=== PATIENT | male | born 1960 | race Caucasian/White ===

== ENCOUNTER 2018-12-10 12:03 | Day surgery (SDC) | payer BC, SELFPAY ==
--- NOTE | 2018-12-09 18:33 | PCM.HP.BLA ---
History and Physical Date of Admission: 12/10/18 HISTORY AND PHYSICAL ? Damaso Mccarthy 1960 ? REFERRING PHYSICIAN: Jamey Mann MD ? CHIEF COMPLAINT: Consult ? HPI: The patient is a 57 year old male referred for endoscopy. Patient notes frustration that he had to come in for this office visit prior to his procedure. Damaso notes a family history of colon polyps and occasional bright red rectal bleeding with a bowel movement. He previously had a colonoscopy by Dr. Negro which was performed under [facility] at [facility] on 09/17/13. This was normal, with 5-year follow-up recommended by Dr. Negro due to the family history of polyps. Patient denies any change in bowel habits, weight changes, black tarry stools or abdominal pain. The patient notes no upper GI complaints currently. ? Patient's past medical history is significant for hypertension, hyperlipidemia, obstructive sleep apnea, COPD. He is a former smoker, notes quit 2 years ago. He has a past history of cocaine use, in remission, notes has not used in 8 years. Patient follows with Dr. Mann for his chronic medical conditions. He denies any chest pain, shortness of breath or recent hospitalizations. Denies problems with sedation in the past. ? ? ? PAST?MEDICAL?HISTORY ? Cocaine addiction ([facility]) 07/24/2013 ? in recovery x3 ? COPD (chronic obstructive pulmonary disease) ([facility]) 07/24/2013 ? Dr. Serrano ? Depression 07/24/2013 ? Dr. Danielle Phillip, Psychiatry, [place], [place] ? MARCELINA (generalized anxiety disorder) ? ? Insomnia ? ? Mixed hyperlipidemia 08/11/2013 ? Mood disorder ([facility]) ? ? Nicotine dependence ? ? Obesity 07/24/2013 ? CHANA (obstructive sleep apnea) ? ? HCANA on CPAP 07/24/2013 ? Dr. Welch ? Restless leg syndrome 07/24/2013 ? Septic arthritis of knee ([facility]) 2009 ? [facility] ? Substance abuse in remission ([facility]) 07/24/2013 ? Tobacco use 07/24/2013 ? Unspecified essential hypertension 07/24/2013 ? ? PAST?SURGICAL?HISTORY ? COLONOSCOP W/ OR W/O BRSH SPEC ? 09/17/13 ? Colonoscopy [facility] outpt with mac ? NONE ? CURRENT?MEDICATIONS traZODone (DESYREL) 50 mg tablet Take 1 tablet by mouth at bedtime as needed (insomnia). lisinopril-hydrochlorothiazide (PRINZIDE,ZESTORETIC) 10-12.5 mg per tablet Take 1 tablet by mouth every morning. tamsulosin ER (FLOMAX) 0.4 mg cap Take 1 capsule by mouth daily at bedtime. atorvastatin (LIPITOR) 40 mg tablet Take 1 tablet by mouth daily at bedtime. buPROPion XL (WELLBUTRIN XL) 300 mg 24 hr tablet Take 1 tablet by mouth once daily. DOCOSAHEXANOIC ACID/EPA (FISH OIL ORAL) Take 1 tablet by mouth. VITAMIN E, DL,TOCOPHERYL ACET, (VITAMIN E, DL, ACETATE,) 100 unit capsule Take 400 Units by mouth once daily. CYANOCOBALAMIN, VITAMIN B-12, (VITAMIN B-12 ORAL) Take 1 tablet by mouth once daily. CPAP Initiate CPAP @ 8 cm of water with humidification. Mask (per patient preference) optional chin strap (if indicated) , filters, tubing, humidifier and lifetime supplies. Dx: ICD9: 327.23, V46.8, ICD10: G47.33, Z99.89 Cholecalciferol, Vitamin D3, (VITAMIN D) 1,000 unit cap Take 1,000 Units by mouth once daily. Eye Lubricant Combination No.1 (FRESHKOTE) 2-0.9-1.8 % drop Use 2 Drops in both eyes four times daily as needed. sertraline (ZOLOFT) 50 mg tablet Take 1 tablet by mouth once daily. ? ? ALLERGIES: Patient has no known allergies. ? SOCIAL?HISTORY Social History Socioeconomic History Marital status: Spouse name: Not on file Number of children: 0 Occupational History Occupation: retired Comment: computer hardware [employer] Tobacco Use Smoking status: Former Smoker Packs/day: 1.00 Years: 36.00 Pack years: 36 Types: Cigarettes Quit date: 10/26/2015 Years since quittin.0 Smokeless tobacco: Never Used Substance and Sexual Activity Alcohol use: No Comment: year of sobriety - 2010 Drug use: No Types: Marijuana, Crack Cocaine Comment: recovering since 2010 Lives alone. Moved from [place] 2 years ago. Retired from [employer]. ? FAMILY HISTORY: ? Heart Father ? ? Hearing Loss Father ? ? Hypertension Brother ? ? REVIEW OF SYSTEMS: General: The patient denies fatigue, denies weight loss, denies weight gain, denies feeling hot, and denies feelings of cold. Eyes: The patient denies glaucoma, denies eye injury/surgery, does not wear glasses or contacts. Ear/Nose/Throat: The patient denies allergies, denies hayfever, denies ear infections, and denies bloody noses. Cardiovascular: The patient denies chest pain, denies heart disease, notes high blood pressure,denies cardiac stent, denies prior heart attack, denies irregular heart beat, notes high cholesterol, denies poor circulation, denies heart failure, other cardiac issues, denies claudication, denies cold feet, denies peripheral arterial stent. Respiratory: The patient denies tuberculosis, denies pneumonia, denies frequent cough, denies pulmonary embolism, denies shortness of breath, and denies coughing up blood. Gastrointestinal: The patient denies difficulty swallowing, denies acid reflux, denies ulcers, denies vomiting, denies jaundice/hepatitis, denies gallbladder problems, denies black or tarry stools, denies hemorrhoids, denies bleeding from rectum, denies diverticulitis, denies constipation, denies diarrhea, denies loss of stool control, and denies hernias. Kidney/Bladder: The patient denies kidney stones, denies urine infections, and denies bloody urine. Skin: The patient denies a history of skin cancer, denies bleeding/changing moles, and denies a history of skin rash. Neurologic: The patient denies a history of epilepsy/convulsions, denies headaches, denies head/spinal injuries, and denies stroke/TIA. Psychiatric: The patient denies psychiatric medications, notes depression, and denies voices, denies substance abuse. Endocrine: The patient denies thyroid disorders, denies diabetes, and denies hormonal problems. Hematologic: The patient denies a history of bruising, denies bleeding, and denies anemia, denies blood clots. Infections: The patient denies a history of measles and mumps, denies rheumatic fever, and denies sexually transmitted diseases. Musculoskeletal: The patient denies back pain/injury, denies back problems, notes sciatica, denies knee/foot trouble, denies arthritis, or denies gout. ? ? PHYSICAL EXAMINATION: ? General: The patient is 57 year old male, well nourished, well hydrated in no acute distress. The patient is oriented to time, place, and person. ? VITALS: Blood pressure 116/76, pulse 80, temperature 36.7 ?C (98 ?F), temperature source Temporal Artery, height 187.3 cm (6' 1.75), weight 109.3 kg (241 lb), SpO2 95 %. Body mass index is 31.15 kg/m?. ? HEENT: Normal cephalic, ataumatic, pupils are equally round, sclera are anicteric, mucous membranes are moist, oropharynx is clear. Neck has no masses, asymmetry or lymphadenopathy. ? Respiratory: Clear to auscultation and percussion. Normal respiratory excursion and pattern. ? Cardiac: Examination is regular rate and rhythm. Normal S1/S2 ? Abdominal exam: Soft, nontender, with no palpable masses. No hepatosplenomegaly. No palpable hernias. ? Extremities: no clubbing, cyanosis or edema. No adenopathy. ? IMPRESSION: encounter for screening colonoscopy ? PLAN: I have reviewed my findings with the surgeon. Will plan for lower endoscopy. We discussed the risks and benefits of the planned endoscopy. I have informed the patient that complications can occur including failure to complete the endoscopy and perforation. The patient had the opportunity to ask questions concerning the planned endoscopy. My staff has also explained the procedure to the patient in understandable terms and has given the patient printed material concerning the procedure. The patient freely consents to surgery. ? I plan to use Golytely bowel preparation ? We will plan for [facility]. ? Diagnoses: (Z12.11) Encounter for screening for malignant neoplasm of colon (primary encounter diagnosis) (Z87.898) History of substance use (Z87.891) Former smoker (Z83.71) Family history of colonic polyps ? ? Julia Aranda PA-C
[2018-12-10] VITALS (7 sets, daily range): BP systolic 93–108; BP diastolic 67–77; PULSE 57–88; RESP 16; TEMP 36.3–37; O2SAT 94–96; BMI 30.6
--- NOTE | 2018-12-12 10:45 | OP.ENDO_ITS ---
12/12/2018 Jamey Mann [address] [place] [address] Re : Colonoscopy procedure for Damaso Mccarthy Dear Dr. Mann This procedure was performed on Monday, December 10, 2018. My impressions and recommendations are as follows: Impressions : - Diverticulosis in the sigmoid colon. - Non-bleeding external and internal hemorrhoids. - No specimens collected. Recommendations : - Repeat colonoscopy in 10 years for screening purposes. - Return to primary care physician PRN. - Continue present medications. My findings are described in the full procedure note, which is enclosed. If I can be of further assistance, please feel free to contact me at Doctor phone number(s): , Work: . Sincerely, MD Love Madera MD 12/10/2018 1:31:46 PM This report has been signed electronically.
== END 2018-12-10 14:18 | disposition home or self-care (01) ==
LOC: EN 12:05 → AC 12:07
PROVIDERS: Family Provider Internal Medicine; PCP Internal Medicine; Referring Provider Internal Medicine; Visit Provider Surgery
PROC: 0DJD8ZZ Inspection of Lower Intestinal Tract, Via Natural or Artificial Opening Endoscopic (ICD-10-PCS; CPT 45378; principal; 2018-12-10 13:05)
DX: Z12.11 Encounter for screening for malignant neoplasm of colon (principal); K64.8 Other hemorrhoids; K64.4 Residual hemorrhoidal skin tags; K57.30 Diverticulosis of large intestine without perforation or abscess without bleeding; Z83.71 Family history of colonic polyps; I10 Essential (primary) hypertension; E78.2 Mixed hyperlipidemia; G47.33 Obstructive sleep apnea (adult) (pediatric); J44.9 Chronic obstructive pulmonary disease, unspecified; F32.9 Major depressive disorder, single episode, unspecified; F41.1 Generalized anxiety disorder; G25.81 Restless legs syndrome; Z87.891 Personal history of nicotine dependence; Z87.898 Personal history of other specified conditions; Z79.899 Other long term (current) drug therapy
CPT/HCPCS: 45378; J7120